=== PATIENT | female | born 1985 | race Caucasian/White ===

== ENCOUNTER 2023-03-27 04:50 | Emergency (ER) | payer MEDICARE, OTHER ==
[~2023-03-27] VITALS: Ht 149.9 cm; Wt 68.0 kg
[~2023-03-27 04:50] MED LIST: ACET-3161; ASPI-1497 PO; MYCO180T3 MT; PRED5TAB MT; REN800; TACR0.00 MC
[2023-03-27 05:00] VITALS: BP 122/82; O2SAT 99
[2023-03-27 07:06] VITALS: PULSE 87; RESP 16; TEMP 98.1
== END 2023-03-27 07:07 | disposition home or self-care (01) ==
LOC: ER 04:50
DX: Z48.02 Encounter for removal of sutures (principal); Z98.890 Other specified postprocedural states
CPT/HCPCS: 99281